=== PATIENT | female | born 1975 | race Caucasian/White ===

== ENCOUNTER → 2023-01-21 | Outpatient (CLI) | payer BC ==
[2023-01-21 11:16] LABS: BASOPHILS % (AUTO) 1 % (0-10); EOSINOPHILS # (AUTO) 0.1 10^3/uL (0.0-0.3); EOSINOPHILS % (AUTO) 2 % (0-10); HEMATOCRIT 32 % (35-52); HEMOGLOBIN 10.4 g/dL (11.5-16.0); LYMPHOCYTES % (AUTO) 36 % (12-44); MEAN CORPUSCULAR HEMOGLOBIN 31 pg (25-34); MEAN CORPUSCULAR HGB CONC 33 g/dL (32-36); MEAN CORPUSCULAR VOLUME 94 fL (80-99); MEAN PLATELET VOLUME 9.1 fL (9.0-12.2); MONOCYTES # (AUTO) 0.3 10^3/uL (0.0-1.0); MONOCYTES % (AUTO) 6 % (0-12); NEUTROPHILS # (AUTO) 3.1 10^3/uL (1.8-7.8); NEUTROPHILS % (AUTO) 56 % (42-75); PLATELET COUNT 321 10^3/uL (130-400); WHITE BLOOD COUNT 5.5 10^3/uL (4.3-11.0)
[2023-01-21 11:22] LABS: ALBUMIN 4.2 GM/DL (3.2-4.5); POTASSIUM 3.7 MMOL/L (3.6-5.0)
[2023-01-21 11:24] LABS: CALCIUM 9.8 MG/DL (8.5-10.1)
[2023-01-21 11:25] LABS: TOTAL PROTEIN 8.9 GM/DL (6.4-8.2)
[2023-01-21 11:26] LABS: BILIRUBIN,TOTAL 0.2 MG/DL (0.1-1.0)
[2023-01-21 11:28] LABS: CREATININE SERUM 1.42 MG/DL (0.60-1.30)
[2023-01-21 11:34] LABS: ERYTHROCYTE SEDIMENTATION RATE 88 MM/HR (0-20)
== END ==
LOC: WOUNDCARE 09:32
PROVIDERS: ATTEND Family Medicine
DX: I96 Gangrene, not elsewhere classified (principal); T81.31XA Disruption of external operation (surgical) wound, not elsewhere classified, initial encounter; L02.212 Cutaneous abscess of back [any part, except buttock and flank]; M86.18 Other acute osteomyelitis, other site; D46.4 Refractory anemia, unspecified; D50.9 Iron deficiency anemia, unspecified; D52.0 Dietary folate deficiency anemia
CPT/HCPCS: 11042; 11045; 80053; 82607; 82728; 82746; 83540; 83550; 85025; 85652; 86141; G0463; 36415

== ENCOUNTER → 2023-01-27 | Outpatient (CLI) | payer BC | LOC: WOUNDCARE 15:06 | PROVIDERS: ATTEND Family Medicine | DX: I96 Gangrene, not elsewhere classified (principal); T81.31XA Disruption of external operation (surgical) wound, not elsewhere classified, initial encounter; L02.212 Cutaneous abscess of back [any part, except buttock and flank]; D50.9 Iron deficiency anemia, unspecified; D52.0 Dietary folate deficiency anemia; M86.18 Other acute osteomyelitis, other site | CPT/HCPCS: 11042; 11045; G0463 ==

== ENCOUNTER → 2023-02-03 | Outpatient (CLI) | payer BC | LOC: WOUNDCARE 14:33 | PROVIDERS: ATTEND Family Medicine | DX: I96 Gangrene, not elsewhere classified (principal); T81.31XA Disruption of external operation (surgical) wound, not elsewhere classified, initial encounter; L02.212 Cutaneous abscess of back [any part, except buttock and flank]; M86.18 Other acute osteomyelitis, other site; D46.4 Refractory anemia, unspecified; D50.9 Iron deficiency anemia, unspecified; D52.0 Dietary folate deficiency anemia | CPT/HCPCS: 11042; G0463 ==